=== PATIENT | male | born 1995 | race Caucasian/White ===

== ENCOUNTER → 2016-12-30 | Outpatient (REF) | payer BC, OTHER | END | disposition home or self-care (01) | LOC: M LAB REF 12:04 | DX: J02.9 Acute pharyngitis, unspecified (principal) ==

== ENCOUNTER 2021-11-26 06:59 | Emergency (ER) | payer BC, OTHER ==
[~2021-11-26] VITALS: Ht 182.9 cm; Wt 99.3 kg
[2021-11-26] MEDS ORDERED: ACET32TAB PO (07:04)
--- NOTE | 2021-11-26 08:58 | REP ---
INDICATION: + covid, sob COMPARISON: 11/28/2013 TECHNIQUE: Portable AP view of the chest FINDINGS: The mediastinum and cardiac silhouette are stable and within normal limits for portable technique. The lung zhou are clear without acute consolidation, effusion, or pneumothorax. Skeletal structures are intact. IMPRESSION: No acute cardiopulmonary process appreciated. <Electronically signed by Nguyễn Garcia > 11/26/21 [id number]
[2021-11-26 09:19] VITALS: BP 133/80
== END 2021-11-26 09:21 | disposition home or self-care (01) ==
LOC: M ED 06:59
DX: U07.1 COVID-19 (principal); Z88.1 Allergy status to other antibiotic agents

== ENCOUNTER 2022-08-03 22:36 | Emergency (ER) | payer OTHER ==
[~2022-08-03] VITALS: Ht 182.9 cm; Wt 97.7 kg
[~2022-08-03 22:36] MED LIST: ACET32TAB PO
[2022-08-04 02:19] LABS: BASO % 0.2 % (0.0-1.0); EOS % 0.1 % (0.0-3.0); HEMATOCRIT 46.8 % (42.0-52.0); LYMPH % 16.8 % (24.0-44.0); MEAN CORPUSCULAR HEMOGLOBIN 29.7 pg (27.0-33.0); MEAN CORPUSCULAR HGB CONC 34.2 g/dl (32.0-36.5); MONO # 0.5 10^3/uL (0.0-0.8); MONO % 3.7 % (2.0-8.0); NEUTROPHILS # 9.5 10^3/uL (1.5-8.5); NEUTROPHILS % 78.9 % (36.0-66.0); PLATELET COUNT, AUTOMATED 242 10^3/uL (150-450); RED BLOOD COUNT 5.38 10^6/uL (4.30-6.10); WHITE BLOOD COUNT 12.1 10^3/uL (4.0-10.0)
[2022-08-04 02:55] LABS: CK-MB VALUE MASS < 1.0 NG/ML (<3.6); CPK CREATINE PHOSPHOKINASE 53 U/L (39-308); MB/CK RELATIVE INDEX 1.89 (< OR =4)
[2022-08-04 03:03] LABS: ALBUMIN 4.9 GM/DL (3.2-5.2); ALT/SGPT 35 U/L (12-78); BILIRUBIN,TOTAL 0.5 MG/DL (0.2-1.0); BLOOD UREA NITROGEN 13 MG/DL (7-18); CALCIUM LEVEL 9.4 MG/DL (8.5-10.1); CARBON DIOXIDE LEVEL 27 MEQ/L (21-32); CHLORIDE LEVEL 104 MEQ/L (98-107); CREATININE FOR GFR 0.97 MG/DL (0.70-1.30); GLOMERULAR FILTRATION RATE > 60.0 (>60); GLUCOSE, FASTING 107 MG/DL (70-100); MAGNESIUM LEVEL 2.3 MG/DL (1.8-2.4); POTASSIUM SERUM 4.4 MEQ/L (3.5-5.1); SODIUM LEVEL 137 MEQ/L (136-145); TOTAL PROTEIN 8.6 GM/DL (6.4-8.2)
[2022-08-04 04:52] LABS: AMPHETAMINES LEVEL URINE NEGATIVE (NEGATIVE); BARBITURATES URINE NEGATIVE (NEGATIVE); BENZODIAZEPINES URINE NEGATIVE (NEGATIVE); CANNABINOIDS URINE POSITIVE (NEGATIVE); COCAINE METABOLITE URINE NEGATIVE (NEGATIVE); METHADONE URINE NEGATIVE (NEGATIVE); OPIATES URINE NEGATIVE (NEGATIVE); PHENCYCLIDINE URINE NEGATIVE (NEGATIVE)
[2022-08-04] MEDS ORDERED: HYDR-643 PO (05:10)
[2022-08-04] MEDS ORDERED: HOLTER MONITOR XX (05:11)
[2022-08-04 05:15] VITALS: BP 143/89
== END 2022-08-04 05:31 | disposition home or self-care (01) ==
LOC: M ED 22:36
DX: R00.2 Palpitations (principal); F41.9 Anxiety disorder, unspecified; I10 Essential (primary) hypertension; F17.290 Nicotine dependence, other tobacco product, uncomplicated; Z88.1 Allergy status to other antibiotic agents

== ENCOUNTER → 2022-08-05 | Outpatient (CLI) | payer OTHER ==
[~2022-08-05] MED LIST changes: +HOLTER MONITOR XX; +HYDR-643 PO
== END ==
LOC: M EKG 09:27
PROVIDERS: ATTEND Emergency Medicine
DX: R00.0 Tachycardia, unspecified (principal)

== ENCOUNTER → 2024-01-23 | Outpatient (REF) | payer OTHER, BC | LOC: M SMT 13:32 | PROVIDERS: ATTEND Urology | DX: Z30.2 Encounter for sterilization (principal) ==

== ENCOUNTER 2025-06-12 03:43 | Emergency (ER) | payer BC ==
[~2025-06-12] VITALS: Ht 185.4 cm; Wt 97.7 kg
[2025-06-12 04:28] LABS: KETONE, URINE AUTO RFX TRACE mg/dL (NEGATIVE); LEUKOCYTE ESTERASE UR AUTO RFX NEGATIVE (NEGATIVE); MUCUS, URINE RFX SMALL (NEGATIVE); NITRITE, URINE AUTO RFX NEGATIVE (NEGATIVE); RBC, URINE AUTO RFX 13 /HPF (0-3); SQUAM EPITHELIAL CELL UR AURFX 0 /HPF (0-6); WBC, URINE AUTO RFX 2 /HPF (0-3)
[2025-06-12 06:04] LABS: PLATELET COUNT, AUTOMATED 230 10^3/uL (150-450)
[2025-06-12] MEDS: ONDANSETRON 4MG 2ML VIAL IV ONE (06:06)
[2025-06-12] MEDS: KETOROLAC 30 MG/ML 1 ML VIAL IV ONE (06:08)
[2025-06-12] MEDS: NS (Normal Saline) 0.9% 1,000 ML IV ONE (06:09)
[2025-06-12 06:29] LABS: ALT/SGPT 32 U/L (7.0-40); AST/SGOT 33 U/L (<34); CALCIUM LEVEL 9.3 MG/DL (8.5-10.1); CARBON DIOXIDE LEVEL 26 MMOL/L (20-31); CHLORIDE LEVEL 104 MMOL/L (98-107); CREATININE FOR GFR 1.07 MG/DL (0.70-1.30); GLOMERULAR FILTRATION RATE > 90.0 (>60); POTASSIUM SERUM 4.3 MMOL/L (3.5-5.1); SODIUM LEVEL 141 MMOL/L (136-145)
[2025-06-12 07:30] VITALS: BP 138/80
[2025-06-12 07:45] VITALS: TEMP 97.8; O2SAT 97
[2025-06-12] MEDS ORDERED: TAMS-18 PO (07:50)
[2025-06-12] MEDS ORDERED: KETO-204 PO (07:50)
[2025-06-12] MEDS ORDERED: ONDA-282 PO (07:50)
== END 2025-06-12 08:07 | disposition home or self-care (01) ==
LOC: M ED 03:43
DX: N20.1 Calculus of ureter (principal); Z88.1 Allergy status to other antibiotic agents; Z79.899 Other long term (current) drug therapy
CPT/HCPCS: 74176; 80048; 80076; 81001; 85027; 96374; 96375; 99284; J1885; J2405